=== PATIENT | male | born 1955 | race Caucasian/White ===

== ENCOUNTER 2025-02-16 07:54 | Day surgery (SDC) | payer MEDICARE, BC ==
[2025-02-16] MEDS: Lactated Ringers 1,000 ML IV SCH (08:30)
[2025-02-16] MEDS ORDERED: fentaNYL 50 MCG/ML SDV ONE (08:35)
[2025-02-16] MEDS ORDERED: Midazolam 1 MG/ML 2 ML SDV ONE (08:35)
[2025-02-16] MEDS ORDERED: Ketamine 200 MG/20 ML MDV ONE (08:35)
[2025-02-16] MEDS ORDERED: Propofol 200 MG/20 ML SDV ONE (08:35)
[2025-02-16 11:48] VITALS: BP 132/85; PULSE 74
== END 2025-02-16 10:00 | disposition home or self-care (01) ==
LOC: CC.SDS 07:54
PROVIDERS: ATTEND Family Medicine
DX: Z12.11 Encounter for screening for malignant neoplasm of colon (principal); D12.3 Benign neoplasm of transverse colon; D12.7 Benign neoplasm of rectosigmoid junction; K57.30 Diverticulosis of large intestine without perforation or abscess without bleeding; J44.9 Chronic obstructive pulmonary disease, unspecified; I10 Essential (primary) hypertension; E78.00 Pure hypercholesterolemia, unspecified; N40.0 Benign prostatic hyperplasia without lower urinary tract symptoms; F17.210 Nicotine dependence, cigarettes, uncomplicated; Z79.82 Long term (current) use of aspirin; Z79.899 Other long term (current) drug therapy
CPT/HCPCS: 00811; 45380; 45385; 88305; 99100; J2250; J2704; J3010; J3490; J7120